=== PATIENT | male | born 1940 | race Caucasian/White ===

== ENCOUNTER 2016-11-18 12:39 | Emergency (ER) | payer MEDICARE ==
[2016-11-18] MEDS ORDERED: NS 0.9% 1000 ML* 1,000 ML IV ONE (13:27)
[2016-11-18] MEDS ORDERED: Nitroglycerin TAB 0.4 MG* 0.4 MG TAB SL PRN (13:27)
[2016-11-18] MEDS ORDERED: Aspirin Low Dose CHEW TAB* 81 MG PO ONE (13:27)
--- NOTE | 2016-11-18 13:29 | ED ---
Jeison Sow Billy, scribed for Rissa Billingsley MD on 11/18/16 at 1322 . HPI Chest Pain - HPI Summary HPI Summary: Patient is a 76 year-old male coming to [facility] with his for evaluation of chest pain. 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 He states that he has had sharp, intermittent, sternal pain for the last 10 days. He states that the pain would last several seconds and occurred every few hours. Pt went to PCP on Thursday. Pt had an EKG that was unremarkable and had a CT scan of the chest which was normal. Pt was on oral analgesia prescribed by PCP with little effect. Pt states since last evening, the character of the pain changed overnight to a pressure "like a lead weight" on his upper chest and lower back. Denies any SOB, nausea, diaphoresis. No additional analgesia taken. Pt takes 81 mg ASA daily and pletal , no other anticoagulants. He states that he has not taken any medications for erectile dysfunction in the last 3 days. All medications were reviewed this visit. - History of Current Complaint Chief Complaint: EDChestPainROMI Time Seen by Provider: 11/18/16 13:08 Hx Obtained From: Patient Onset/Duration: Started Days Ago, Worse Since - today Timing: Intermittent Initial Severity: Moderate Current Severity: Moderate Pain Intensity: 2 Pain Scale Used: 0-10 Numeric Chest Pain Location: Upper Sternal Chest Pain Radiates: Yes Chest Pain Radiates To:: Back Character: Pressure/Squeezing Associated Signs and Symptoms: Positive: Chest Pain. Negative: Shortness of Breath, Diaphoresis, Nausea - Allergy/Home Medications Allergies/Adverse Reactions: Allergies Allergy/AdvReac Type Severity Reaction Status Date / Time Repaglinide [From Prandin] Allergy Itching Verified 11/18/16 12:45 PMH/Surg Hx/FS Hx/Imm Hx Previously Healthy: No Endocrine/Hematology History: Reports: Hx Anticoagulant Therapy, Hx Diabetes - TYPE 2 Cardiovascular History: Reports: Hx Coronary Artery Disease, Hx Hypercholesterolemia, Hx Hypertension - CONTROLED WITH MEDS, Hx Peripheral Vascular Disease, Other Cardiovascular Problems/Disorders - IDDM II Respiratory History: Denies: Hx Chronic Obstructive Pulmonary Disease (COPD), Other Respiratory Problems/Disorders GI History: Reports: Hx Gall Bladder Disease, Other GI Disorders - liver transplant History: Reports: Other Problems/Disorders - RENAL TRANSPLANT R Musculoskeletal History: Denies: Hx Osteoporosis Sensory History: Reports: Hx Cataracts, Hx Hearing Aid, Hx Hearing Problem Denies: Hx Contacts or Glasses Opthamlomology History: Reports: Hx Cataracts Denies: Hx Contacts or Glasses Neurological History: Reports: Hx Nerve Disease - NEUROPATHY Denies: Other Neuro Impairments/Disorders Psychiatric History: Reports: Hx Depression - Surgical History Surgery Procedure, Year, and Place: RT HIP/FEMUR LILIAN, 06/2006. C-SPINE PLATE, 05/2000. hernias x3, 2003- 2005. kidney and liver transplant, 2006, [facility] Hx Anesthesia Reactions: No Infectious Disease History: Reports: Hx Hepatitis - HEP C Denies: Traveled Outside the [place] in Last 30 Days - Family History Known Family History: Positive: Diabetes, Other - no malignant hyperthermia, no reaction to anesthesia - Social History Lives: With Family Alcohol Use: Occasionally Substance Use Type: Reports: None Hx Tobacco Use: Yes Smoking Status (MU): Former Smoker Amount Used/How Often: 1 ppd Have You Smoked in the Last Year: No Review of Systems Constitutional: Negative Negative: Skin Diaphoresis Eyes: Negative ENT: Negative Positive: Chest Pain Respiratory: Negative Negative: Shortness Of Breath Gastrointestinal: Negative Negative: Nausea Genitourinary: Negative Musculoskeletal: Negative Skin: Negative Neurological: Negative Psychological: Normal All Other Systems Reviewed And Are Negative: Yes Physical Exam Triage Information Reviewed: Yes Vital Signs On Initial Exam: Initial Vitals Temp Pulse Resp BP Pulse Ox 97.8 F 72 18 129/62 97 11/18/16 12:42 11/18/16 12:42 11/18/16 12:42 11/18/16 12:42 11/18/16 12:42 Vital Signs Reviewed: Yes Appearance: Positive: Well-Appearing, No Pain Distress, Well-Nourished Skin: Positive: Warm, Skin Color Reflects Adequate Perfusion, Dry Eyes: Positive: Normal, EOMI, ADDIE ENT: Positive: Normal ENT inspection Neck: Positive: Supple, Nontender, No Lymphadenopathy Respiratory/Lung Sounds: Positive: Clear to Auscultation, Breath Sounds Present , Decreased Breath Sounds Cardiovascular: Positive: Normal, RRR. Negative: Murmur Abdomen Description: Positive: Nontender, No Organomegaly, Soft Bowel Sounds: Positive: Present Musculoskeletal: Positive: Normal, Strength/ROM Intact Neurological: Positive: Normal, Sensory/Motor Intact, Alert, Oriented to Person Place, Time Psychiatric: Positive: Normal AVPU Assessment: Alert - Gaduencio Coma Scale Best Eye Response: 4 - Spontaneous Best Motor Response: 6 - Obeys Commands Best Verbal Response: 5 - Oriented Diagnostics - Vital Signs Vital Signs Temp Pulse Resp BP Pulse Ox 11/18/16 12:42 97.8 F 72 18 129/62 97 - Laboratory Result Diagrams: 11/18/16 13:50 11/18/16 13:50 Lab Statement: Any lab studies that have been ordered have been reviewed, and results considered in the medical decision making process. - Radiology CXR Radiology Interpretation Completed By: Radiologist - Expiratory exam, small left basilar infiltrate. - EKG 1248 EKG Interpretation: NSR 65 bpm, minimal ST elevation in III, no reciprocal change, no STEMI Re-Evaluation - Re-Evaluation First Eval Re-Evaluation Time: 15:02 Change: Improved - Pt states pressure resolved after nitroglycerin Pt's troponin 0 I have a very long conversation with pt and regarding concern for cardiac cause of pain given description of pressure and complete resolution with nitro. I would like to keep pt in observation for serial troponin. Pt adamant will not stay in the ED - pt citing personal reasons. pt does have an appt tomorrow with PCP at 11am. Disscussed with pt AMA and reviewed potential for coronary syndrome, permanent disability and / or . Pt continued to states understanding and desire to leave. Pt encouraged to call 911 or return with any questions or concern or change in decision - pt states understanding AMA paperwork completed Chest Pain Course/Dx - Course Assessment/Plan: Pt presents with chest pressure x 24 hours. Pt with a h/o CABG 05/2017. Pt also with DM, HTN, hyperchol. Will check labs, EKG, CXR. Pt tool 81mg ASA - will give second. ntg. tele. reassess - Diagnoses Provider Diagnoses: Chest pain, Left against medical advice - Provider Notifications Discussed Care Of Patient With: Tyler Bergeron RN in dr. Padilla's office. aware of eval, pain free after ntg, pt leaving AMA. pt has appt tomorrow at 11am with PCP Discharge - Discharge Plan Condition: Good Disposition: AGAINST MEDICAL ADVICE Patient Education Materials: Chest Pain (ED), Against Medical Advice (ED) Referrals: Emmie Oconnell MD [Primary Care Provider] - Additional Instructions: - Stay well hydrated - drink plenty of non-alcoholic, non-caffinated beverages - Take your medications as previously prescribed - You must keep your appointment as schedule with your primary doctor as scheduled tomorrow - you are leaving against medical advise -this means the doctor that evaluated you wanted you to stay for additional testing. You should call 911 or return if you change your mind or you have any other questions or concerns The documentation as recorded by the Jeison smith Billy accurately reflects the service I personally performed and the decisions made by me, Rissa Billingsley MD.
[2016-11-18 13:57] LABS: Hematocrit 39 % (42-52); Hemoglobin 12.4 g/dl (14.0-18.0); Mean Corpuscular HGB Conc 32 g/dl (31-36); Mean Corpuscular Hemoglobin 25 pg (27-31); Mean Corpuscular Volume 78 fL (80-94); Mean Platelet Volume 7 um3 (7.4-10.4); Red Blood Count 4.98 10^6/ul (4.0-5.4); Red Cell Distribution Width 19 % (10.5-15); White Blood Count 7.6 10^3/ul (3.5-10.8)
--- NOTE | 2016-11-18 14:09 | RAD ---
INDICATION: Chest pain. COMPARISON: Comparison is made with prior chest x-ray studies from May 31, 2016 and August 13, 2016. TECHNIQUE: A portable view of the chest was obtained. FINDINGS: The heart is within normal limits in size. There is a dual-chamber transvenous pacemaker present. The lungs are underinflated. There is a small infiltrate at the left lung base. No pleural effusion is seen. IMPRESSION: EXPIRATORY EXAM, SMALL LEFT BASILAR INFILTRATE.
[2016-11-18 14:15] LABS: Albumin 3.5 g/dL (3.2-5.2); BUN/Creatinine Ratio 16.5 (8-20); Calcium 9.5 mg/dL (8.6-10.3); EGFR African American 104.2 (>60); Globulin 5.3 g/dL (2-4); Magnesium 1.7 mg/dL (1.9-2.7); Potassium 5.1 mmol/L (3.5-5.0); Total Bilirubin 0.5 mg/dL (0.2-1.0); Total Protein 8.8 g/dL (6.4-8.9)
[2016-11-18 15:33] VITALS: BP 122/62
== END 2016-11-18 15:38 | disposition left against medical advice (07) ==
LOC: ED 12:39
DX: R07.9 Chest pain, unspecified (principal); Z87.891 Personal history of nicotine dependence; Z53.21 Procedure and treatment not carried out due to patient leaving prior to being seen by health care provider
CPT/HCPCS: 36415; 71010; 80053; 82550; 82553; 83735; 84484; 85025; 93005; 99283; A9270-GY

== ENCOUNTER 2017-03-11 17:43 | Emergency (ER) | payer MEDICARE ==
[2017-03-11 18:03] VITALS: BP 156/67
== END 2017-03-11 19:32 | disposition left against medical advice (07) ==
LOC: ED 17:43
DX: R07.9 Chest pain, unspecified (principal); Z53.21 Procedure and treatment not carried out due to patient leaving prior to being seen by health care provider

== ENCOUNTER 2020-02-02 04:05 | Observation (INO) ==
[2020-02-02] MEDS ORDERED: Naloxone 0.4 mg VIAL 0.4 mg/ml 1 ml VIAL ONE (04:46)
[2020-02-02] MEDS ORDERED: NS 0.9% 1000 ml BAG 1,000 ML IV ONE ×3 (06:56→16:24)
[2020-02-02] MEDS ORDERED: Labetalol IV 5 MG/ML 20 ml VIAL IV PUSH ONE (06:56)
[2020-02-02] MEDS ORDERED: Iodixanol (CONTRAST) 320 MG/ML 100 ML SDV IV ONE (07:31)
[2020-02-02 08:22] LABS: ABS Eosinophils 0.1 10^3/ul (0-0.6); ABS Monocytes 0.5 10^3/ul (0-0.8); ABS Neutrophils 6.1 10^3/ul (1.5-7.7); Eosinophil % 1.5 %; Hematocrit 47 % (42-52); Hemoglobin 16.4 g/dL (14.0-18.0); Lymphocyte % 12.8 %; Mean Corpuscular HGB Conc 35 g/dL (31-36); Mean Corpuscular Hemoglobin 31 pg (27-31); Mean Corpuscular Volume 90 fL (80-94); Mean Platelet Volume 8.6 fL (7.4-10.4); Nucleated Red Blood Cells % 0.5; Platelet Count 174 10^3/uL (150-450); Red Blood Count 5.21 10^6 /uL (4.18-5.48); Red Cell Distribution Width 14 % (10-15); White Blood Count 7.8 10^3/uL (3.5-10.8)
[2020-02-02 08:23] LABS: Activated Partial Thrombo Time 29.2 seconds (26.0-38.0); INR 1.05 (0.82-1.09)
[2020-02-02 09:07] LABS: Ammonia 31 mcmol/L (16-53); Anion Gap 12 mmol/L (2-11); BNP 142 pg/mL (<=100); CO2 Carbon Dioxide 23 mmol/L (22-32); Chloride 101 mmol/L (101-111); Potassium 4.3 mmol/L (3.5-5.0); Sodium 136 mmol/L (135-145)
[2020-02-02 09:08] LABS: ALT 13 U/L (7-52); AST 15 U/L (13-39); Albumin 4.5 g/dL (3.2-5.2); Albumin/Globulin Ratio 1.3 (1-3); Alkaline Phosphatase 82 U/L (34-104); BUN/Creatinine Ratio 10.8 (8-20); Blood Urea Nitrogen 10 mg/dL (6-24); Calcium 9.5 mg/dL (8.6-10.3); EGFR African American 94.8 (>60); EGFR Non-African American 78.4 (>60); Globulin 3.5 g/dL (2-4); Glucose 199 mg/dL (70-100)
[2020-02-02 09:18] LABS: Urine Benzodiazepine Screen None Detected (None Detect); Urine Cannabinoids Screen None Detected (None Detect); Urine Opiates Screen None Detected (None Detect)
[2020-02-02 09:29] LABS: Urine Appearance Clear; Urine Bacteria Absent (Absent); Urine Bilirubin Negative (Negative); Urine Blood 2+ (Negative); Urine Color Straw; Urine Glucose 2+(150 mg/dL) (Negative); Urine Ketones 1+ (Negative); Urine Nitrite Negative (Negative); Urine Protein Negative (Negative); Urine Red Blood Cell 1+(3-5/hpf) (Absent); Urine Specific Gravity 1.019 (1.010-1.030); Urine Urobilinogen Negative (Negative); Urine White Blood Cell Absent (Absent)
[2020-02-02 10:18] LABS: ABS Basophils 0.1 10^3/ul (0-0.2); ABS Eosinophils 0.1 10^3/ul (0-0.6); ABS Lymphocytes 1.1 10^3/ul (1.0-4.8); ABS Monocytes 0.7 10^3/ul (0-0.8); ABS Neutrophils 6.1 10^3/ul (1.5-7.7); Eosinophil % 1.1 %; Hematocrit 48 % (42-52); Hemoglobin 16.8 g/dL (14.0-18.0); Lymphocyte % 14.3 %; Mean Corpuscular HGB Conc 35 g/dL (31-36); Mean Corpuscular Hemoglobin 32 pg (27-31); Mean Corpuscular Volume 90 fL (80-94); Mean Platelet Volume 8.1 fL (7.4-10.4); Nucleated Red Blood Cells % 0.1; Platelet Count 172 10^3/uL (150-450); Red Blood Count 5.35 10^6 /uL (4.18-5.48); Red Cell Distribution Width 14 % (10-15)
[2020-02-02 10:29] LABS: ALT 13 U/L (7-52); AST 15 U/L (13-39); Albumin 4.4 g/dL (3.2-5.2); Albumin/Globulin Ratio 1.3 (1-3); Alkaline Phosphatase 83 U/L (34-104); Anion Gap 15 mmol/L (2-11); BUN/Creatinine Ratio 8.8 (8-20); Blood Urea Nitrogen 8 mg/dL (6-24); CO2 Carbon Dioxide 20 mmol/L (22-32); Chloride 101 mmol/L (101-111); EGFR African American 97.2 (>60); EGFR Non-African American 80.4 (>60); Globulin 3.5 g/dL (2-4); Glucose 251 mg/dL (70-100); Indirect Bilirubin 1.1 mg/dL (0.3-1.0); Magnesium 1.5 mg/dL (1.9-2.7); Potassium 3.7 mmol/L (3.5-5.0); Sodium 136 mmol/L (135-145); Total Protein 7.9 g/dL (6.4-8.9)
[2020-02-02] MEDS ORDERED: Magnesium Sulfate 2 gm BAG 2 GM/50 ML BAG IVPB ONE ×2 (10:38→11:52)
[2020-02-02 10:44] LABS: Acetaminophen < 15 mcg/mL; Alcohol, S < 10 mg/dL (<10); Salicylate < 2.50 mg/dL (<30)
[2020-02-02 11:52] LABS: Acetaminophen < 15 mcg/mL
[2020-02-02 16:41] LABS: C Reactive Protein 3.73 mg/L (<8.01)
[2020-02-02] MEDS: NS 0.9% 1000 ml BAG 1,000 ML IV SCH (18:33)
[2020-02-02] MEDS: hydrALAZINE 20 mg/ml 1 ML Vial IV IV SLOW PU PRN (21:38)
[2020-02-03] MEDS: hydrALAZINE 20 mg/ml 1 ML Vial IV IV SLOW PU PRN (03:44)
[2020-02-03] MEDS ORDERED: Dextrose 50% Syringe 50 ml 25 GM/50 ML SYRINGE IV PUSH PRN (06:50)
[2020-02-03 07:02] LABS: ABS Basophils 0.1 10^3/ul (0-0.2); ABS Eosinophils 0.3 10^3/ul (0-0.6); ABS Lymphocytes 1.6 10^3/ul (1.0-4.8); ABS Monocytes 0.7 10^3/ul (0-0.8); ABS Neutrophils 4.1 10^3/ul (1.5-7.7); Eosinophil % 4.8 %; Hematocrit 46 % (42-52); Hemoglobin 16.1 g/dL (14.0-18.0); Lymphocyte % 23.4 %; Mean Corpuscular HGB Conc 35 g/dL (31-36); Mean Corpuscular Hemoglobin 31 pg (27-31); Mean Corpuscular Volume 89 fL (80-94); Nucleated Red Blood Cells % 0.1; Platelet Count 181 10^3/uL (150-450); Red Blood Count 5.14 10^6 /uL (4.18-5.48); Red Cell Distribution Width 15 % (10-15); White Blood Count 6.7 10^3/uL (3.5-10.8)
[2020-02-03 07:17] LABS: BUN/Creatinine Ratio 8.9 (8-20); Calcium 8.7 mg/dL (8.6-10.3); EGFR African American 114.5 (>60); EGFR Non-African American 94.6 (>60)
[2020-02-03 07:55] LABS: Potassium 3.8 mmol/L (3.5-5.0)
[2020-02-03] MEDS ORDERED: Aspirin EC 81 mg TAB.EC (enteric coated) PO SCH (09:00)
[2020-02-03] MEDS: NS 0.9% 1000 ml BAG 1,000 ML IV SCH (09:42)
[2020-02-03 17:04] VITALS: BP 145/71
== END 2020-02-03 16:30 | disposition home or self-care (01) ==
LOC: MED 06:51 → ED 06:51 → MED 17:39
PROVIDERS: ADMIT Internal Medicine; ATTEND Internal Medicine

== ENCOUNTER 2020-10-25 17:16 | Inpatient (IN) ==
[2020-10-25 17:46] LABS: ABS Lymphocytes 0.3 10^3/ul (1.0-4.8); ABS Monocytes 0.6 10^3/ul (0-0.8); ABS Neutrophils 11.8 10^3/ul (1.5-7.7); Hematocrit 43 % (42-52); Hemoglobin 14.6 g/dL (14.0-18.0); Lymphocyte % 2.3 %; Mean Corpuscular HGB Conc 34 g/dL (31-36); Mean Corpuscular Hemoglobin 31 pg (27-31); Mean Corpuscular Volume 90 fL (80-94); Mean Platelet Volume 7.5 fL (7.4-10.4); Platelet Count 186 10^3/uL (150-450); Red Blood Count 4.73 10^6 /uL (4.18-5.48); Red Cell Distribution Width 15 % (10-15); White Blood Count 12.6 10^3/uL (3.5-10.8)
[2020-10-25] MEDS ORDERED: NS 0.9% 1000 ml BAG 1,000 ML IV ONE (17:54)
[2020-10-25 17:57] LABS: ALT 11 U/L (7-52); AST 18 U/L (13-39); Albumin 4.3 g/dL (3.2-5.2); Albumin/Globulin Ratio 1.3 (1-3); Alkaline Phosphatase 82 U/L (34-104); Anion Gap 13 mmol/L (2-11); Blood Urea Nitrogen 22 mg/dL (6-24); CO2 Carbon Dioxide 21 mmol/L (22-32); Calcium 9.1 mg/dL (8.6-10.3); Chloride 103 mmol/L (101-111); Creatine Kinase 77 U/L (10-223); EGFR African American 47.5 (>60); EGFR Non-African American 39.2 (>60); Globulin 3.4 g/dL (2-4); Glucose 114 mg/dL (70-100); Magnesium 1.6 mg/dL (1.9-2.7); Potassium 3.5 mmol/L (3.5-5.0); Sodium 137 mmol/L (135-145); Total Protein 7.7 g/dL (6.4-8.9)
[2020-10-25 18:10] LABS: Troponin I 0.04 ng/mL (<0.03)
[2020-10-25 18:25] LABS: TSH Ultra Thyroid Stim Horm 2.75 mcIU/mL (0.34-5.60)
[2020-10-25] MEDS ORDERED: Magnesium Sulfate 2 gm BAG 2 GM/50 ML BAG IVPB ONE (18:53)
[2020-10-25] MEDS ORDERED: Dextrose 50% Syringe 50 ml 25 GM/50 ML SYRINGE IV PUSH ONE (19:33)
[2020-10-25] MEDS ORDERED: Dextrose 50% Syringe 50 ml 25 GM/50 ML SYRINGE ONE (19:34)
[2020-10-25] MEDS ORDERED: Ondansetron 4 mg VIAL 2 MG/ML 2 ml VIAL IV ONE (20:15)
[2020-10-25] MEDS ORDERED: Sodium Chloride CONC. 4 MEQ/ML 38.5 MEQ in D10W 1000 ml BAG 1,000 ML IV SCH (21:00)
[2020-10-25] MEDS ORDERED: D10W 1000 ML BAG 1000 ML IV SCH (21:00)
[2020-10-25] MEDS: Dextrose 50% Syringe 50 ml 25 GM/50 ML SYRINGE IV PUSH PRN ×2 (21:10→22:12)
[2020-10-25] MEDS ORDERED: Heparin DRIP 25,000 UNITS BAG 25,000 UNITS/500 ML BAG IV SCH (21:45)
[2020-10-25] MEDS ORDERED: Sodium Chloride CONC. 4 MEQ/ML 77 MEQ in D10W 1000 ml BAG 1,000 ML IV SCH (22:00)
[2020-10-25] MEDS ORDERED: D10W 1000 ml BAG 1,000 ML IV SCH (22:00)
[2020-10-25] MEDS ORDERED: Enoxaparin 30 MG/0.3 ML SYR SUBCUT SCH (22:00)
[2020-10-25] MEDS ORDERED: Heparin 5000 UNITS/ML 1 mL VIAL IV SCH (22:00)
[2020-10-25] MEDS ORDERED: Dextrose 50% Syringe 50 ml 25 GM/50 ML SYRINGE IV PUSH PRN (22:09)
[2020-10-25 22:43] LABS: ABS Basophils 0.1 10^3/ul (0-0.2); ABS Lymphocytes 0.7 10^3/ul (1.0-4.8); ABS Monocytes 1.1 10^3/ul (0-0.8); Eosinophil % 0.1 %; Hematocrit 40 % (42-52); Hemoglobin 13.5 g/dL (14.0-18.0); Lymphocyte % 5.4 %; Mean Corpuscular HGB Conc 34 g/dL (31-36); Mean Corpuscular Hemoglobin 31 pg (27-31); Mean Corpuscular Volume 90 fL (80-94); Mean Platelet Volume 7.5 fL (7.4-10.4); Platelet Count 196 10^3/uL (150-450); Red Blood Count 4.43 10^6 /uL (4.18-5.48); Red Cell Distribution Width 15 % (10-15); White Blood Count 12.9 10^3/uL (3.5-10.8)
[2020-10-25 22:59] LABS: EGFR African American 46.2 (>60); EGFR Non-African American 38.2 (>60)
[2020-10-26 05:14] LABS: ABS Lymphocytes 1.1 10^3/ul (1.0-4.8); ABS Monocytes 1.3 10^3/ul (0-0.8); ABS Neutrophils 12.3 10^3/ul (1.5-7.7); Eosinophil % 0.1 %; Hematocrit 39 % (42-52); Hemoglobin 13.3 g/dL (14.0-18.0); Lymphocyte % 7.7 %; Mean Corpuscular HGB Conc 34 g/dL (31-36); Mean Corpuscular Hemoglobin 31 pg (27-31); Mean Corpuscular Volume 91 fL (80-94); Mean Platelet Volume 8.2 fL (7.4-10.4); Platelet Count 179 10^3/uL (150-450); Red Blood Count 4.33 10^6 /uL (4.18-5.48); Red Cell Distribution Width 15 % (10-15); White Blood Count 14.7 10^3/uL (3.5-10.8)
[2020-10-26 05:33] LABS: BUN/Creatinine Ratio 13.9 (8-20); Calcium 8.4 mg/dL (8.6-10.3); EGFR African American 42.2 (>60); EGFR Non-African American 34.9 (>60); Magnesium 2.1 mg/dL (1.9-2.7)
[2020-10-26 05:42] LABS: Potassium 5.7 mmol/L (3.5-5.0)
[2020-10-26] MEDS ORDERED: NS 0.9% 1000 ml BAG 1,000 ML IV SCH (07:00)
[2020-10-26] MEDS ORDERED: D10W 1000 ml BAG 1,000 ML IV SCH ×2 (07:00→07:42)
[2020-10-26] MEDS: Aspirin EC 81 mg TAB.EC (enteric coated) PO SCH (07:29)
[2020-10-26] MEDS ORDERED: Furosemide 40 mg/4 ml IV VIAL IV SLOW PU ONE (07:32)
[2020-10-26] MEDS ORDERED: Furosemide 40 mg/4 ml IV VIAL ONE (07:41)
[2020-10-26] MEDS ORDERED: Albuterol/Ipratropium NEB.SOL (2.5/0.5 MG) 3 ML NEB.SOLN INH SCH (12:00)
[2020-10-26] MEDS: DULoxetine DR 20 mg CAP PO SCH (13:08)
[2020-10-26] MEDS: Polyethylene Glycol 3350 17 GM PACKET PO PRN (13:30)
[2020-10-26 18:16] LABS: BUN/Creatinine Ratio 17.4 (8-20); Blood Urea Nitrogen 21 mg/dL (6-24); CO2 Carbon Dioxide 18 mmol/L (22-32); Calcium 6.8 mg/dL (8.6-10.3); Chloride 109 mmol/L (101-111); EGFR African American 69.8 (>60); EGFR Non-African American 57.7 (>60); Glucose 94 mg/dL (70-100); Sodium 135 mmol/L (135-145)
[2020-10-26 18:17] LABS: Anion Gap 8 mmol/L (2-11)
[2020-10-26] MEDS: Senna TAB 8.6 mg TAB PO PRN (21:09)
[2020-10-26] MEDS: Albuterol/Ipratropium NEB.SOL (2.5/0.5 MG) 3 ML NEB.SOLN INH PRN (22:08)
[2020-10-27] MEDS: Albuterol/Ipratropium NEB.SOL (2.5/0.5 MG) 3 ML NEB.SOLN INH PRN ×3 (06:09→17:31)
[2020-10-27 07:44] LABS: ABS Basophils 0.1 10^3/ul (0-0.2); ABS Eosinophils 0.2 10^3/ul (0-0.6); ABS Lymphocytes 1.4 10^3/ul (1.0-4.8); ABS Monocytes 0.9 10^3/ul (0-0.8); Eosinophil % 1.9 %; Hematocrit 40 % (42-52); Hemoglobin 13.4 g/dL (14.0-18.0); Lymphocyte % 12.3 %; Mean Corpuscular HGB Conc 34 g/dL (31-36); Mean Corpuscular Hemoglobin 31 pg (27-31); Mean Corpuscular Volume 90 fL (80-94); Mean Platelet Volume 8.2 fL (7.4-10.4); Platelet Count 173 10^3/uL (150-450); Red Blood Count 4.38 10^6 /uL (4.18-5.48); Red Cell Distribution Width 15 % (10-15); White Blood Count 11.6 10^3/uL (3.5-10.8)
[2020-10-27 07:56] LABS: BUN/Creatinine Ratio 19.2 (8-20); Calcium 8.8 mg/dL (8.6-10.3); EGFR African American 70.5 (>60); EGFR Non-African American 58.3 (>60); Potassium 4.8 mmol/L (3.5-5.0)
[2020-10-27] MEDS: Polyethylene Glycol 3350 17 GM PACKET PO PRN (08:42)
[2020-10-27] MEDS: DULoxetine DR 20 mg CAP PO SCH (08:45)
[2020-10-27] MEDS: Aspirin EC 81 mg TAB.EC (enteric coated) PO SCH (08:45)
[2020-10-27] MEDS ORDERED: Furosemide 20 mg/2 ml IV VIAL IV ONE (12:14)
[2020-10-27] MEDS ORDERED: Furosemide 20 mg/2 ml IV VIAL ONE (12:16)
[2020-10-27] MEDS ORDERED: Mineral Oil ENEMA 118 ML/BOTTLE BOTTLE PR ONE (13:24)
[2020-10-27 17:17] LABS: Tacrolimus 2.2 ng/mL
[2020-10-27] MEDS: Magnesium Hydroxide LIQ 30 ML UDC PO SCH (21:28)
[2020-10-27] MEDS: Senna TAB 8.6 mg TAB PO PRN (21:39)
[2020-10-27] MEDS ORDERED: Dextrose 50% Syringe 50 ml 25 GM/50 ML SYRINGE IV PUSH PRN (21:46)
[2020-10-28 04:40] LABS: ABS Eosinophils 0.2 10^3/ul (0-0.6); ABS Lymphocytes 1.2 10^3/ul (1.0-4.8); ABS Neutrophils 7.2 10^3/ul (1.5-7.7); Eosinophil % 1.8 %; Hematocrit 39 % (42-52); Hemoglobin 13.2 g/dL (14.0-18.0); Mean Corpuscular HGB Conc 34 g/dL (31-36); Mean Corpuscular Hemoglobin 31 pg (27-31); Mean Corpuscular Volume 90 fL (80-94); Mean Platelet Volume 8.1 fL (7.4-10.4); Platelet Count 178 10^3/uL (150-450); Red Cell Distribution Width 15 % (10-15); White Blood Count 9.6 10^3/uL (3.5-10.8)
[2020-10-28 04:51] LABS: EGFR Non-African American 71.9 (>60); Potassium 4.3 mmol/L (3.5-5.0)
[2020-10-28] MEDS: Senna TAB 8.6 mg TAB PO PRN (05:40)
[2020-10-28] MEDS: Magnesium Hydroxide LIQ 30 ML UDC PO SCH ×2 (08:14→20:13)
[2020-10-28] MEDS: Aspirin EC 81 mg TAB.EC (enteric coated) PO SCH (08:15)
[2020-10-28] MEDS: DULoxetine DR 20 mg CAP PO SCH (08:15)
[2020-10-28 10:43] LABS: Albumin 3.7 g/dL (3.2-5.2); Albumin/Globulin Ratio 1.2 (1-3); Globulin 3.2 g/dL (2-4); Indirect Bilirubin 0.9 mg/dL (0.3-1.0); Total Bilirubin 1.1 mg/dL (0.2-1.0); Total Protein 6.9 g/dL (6.4-8.9)
[2020-10-28] MEDS: methylPREDNISolone SOD 40 mg/ml 1 ml VIAL IV SCH ×2 (14:00→23:34)
[2020-10-29 05:30] LABS: ABS Lymphocytes 0.4 10^3/ul (1.0-4.8); ABS Monocytes 0.1 10^3/ul (0-0.8); ABS Neutrophils 5.9 10^3/ul (1.5-7.7); Eosinophil % 0.1 %; Hematocrit 38 % (42-52); Hemoglobin 13.1 g/dL (14.0-18.0); Lymphocyte % 6.7 %; Mean Corpuscular HGB Conc 34 g/dL (31-36); Mean Corpuscular Hemoglobin 31 pg (27-31); Mean Corpuscular Volume 90 fL (80-94); Mean Platelet Volume 8.1 fL (7.4-10.4); Platelet Count 194 10^3/uL (150-450); Red Blood Count 4.22 10^6 /uL (4.18-5.48); Red Cell Distribution Width 15 % (10-15); White Blood Count 6.5 10^3/uL (3.5-10.8)
[2020-10-29 05:40] LABS: BUN/Creatinine Ratio 27.9 (8-20); Calcium 9.1 mg/dL (8.6-10.3); EGFR African American 77.1 (>60); EGFR Non-African American 63.7 (>60); Magnesium 2.5 mg/dL (1.9-2.7); Potassium 4.9 mmol/L (3.5-5.0)
[2020-10-29] MEDS ORDERED: Insulin GLARGINE 100 un/ml 10 ml VIAL SUBCUT SCH (09:00)
[2020-10-29] MEDS: Aspirin EC 81 mg TAB.EC (enteric coated) PO SCH (09:49)
[2020-10-29] MEDS: DULoxetine DR 20 mg CAP PO SCH (09:51)
[2020-10-29] MEDS: Magnesium Hydroxide LIQ 30 ML UDC PO SCH ×2 (09:54→20:29)
[2020-10-29] MEDS ORDERED: Iodixanol (CONTRAST) 320 MG/ML 100 ML SDV IV ONE (14:38)
[2020-10-29] MEDS ORDERED: Insulin GLARGINE 100 un/ml 10 ml VIAL SUBCUT ONE (16:58)
[2020-10-29] MEDS: Polyethylene Glycol 3350 17 GM PACKET PO PRN (17:32)
[2020-10-29] MEDS: Senna TAB 8.6 mg TAB PO PRN (17:32)
[2020-10-30 05:55] LABS: ABS Eosinophils 0.1 10^3/ul (0-0.6); ABS Lymphocytes 1.5 10^3/ul (1.0-4.8); ABS Monocytes 0.7 10^3/ul (0-0.8); ABS Neutrophils 4.1 10^3/ul (1.5-7.7); Eosinophil % 2.1 %; Hematocrit 39 % (42-52); Hemoglobin 13.3 g/dL (14.0-18.0); Lymphocyte % 22.9 %; Mean Corpuscular HGB Conc 34 g/dL (31-36); Mean Corpuscular Hemoglobin 31 pg (27-31); Mean Corpuscular Volume 90 fL (80-94); Platelet Count 228 10^3/uL (150-450); Red Blood Count 4.34 10^6 /uL (4.18-5.48); Red Cell Distribution Width 15 % (10-15); White Blood Count 6.4 10^3/uL (3.5-10.8)
[2020-10-30 06:13] LABS: Potassium 4.1 mmol/L (3.5-5.0)
[2020-10-30 06:14] LABS: BUN/Creatinine Ratio 27.2 (8-20); Calcium 8.9 mg/dL (8.6-10.3); EGFR African American 84.1 (>60); EGFR Non-African American 69.5 (>60); Magnesium 2.3 mg/dL (1.9-2.7)
[2020-10-30] MEDS: Aspirin EC 81 mg TAB.EC (enteric coated) PO SCH (08:35)
[2020-10-30] MEDS: Magnesium Hydroxide LIQ 30 ML UDC PO SCH ×2 (08:37→22:05)
[2020-10-30] MEDS: Insulin GLARGINE 100 un/ml 10 ml VIAL SUBCUT SCH (08:41)
[2020-10-30] MEDS ORDERED: DULoxetine DR 30 mg CAP PO SCH (09:00)
[2020-10-31] MEDS ORDERED: SPIRIVA Respimat (tiotropium) 2.5 mcg/inh Inhaler INH SCH (09:00)
[2020-10-31] MEDS: Insulin GLARGINE 100 un/ml 10 ml VIAL SUBCUT SCH (09:03)
[2020-10-31] MEDS: Aspirin EC 81 mg TAB.EC (enteric coated) PO SCH (09:05)
[2020-10-31] MEDS: Magnesium Hydroxide LIQ 30 ML UDC PO SCH (09:06)
[2020-10-31 11:19] VITALS: BP 154/69
[2020-10-31] MEDS ORDERED: DULoxetine DR 30 mg CAP PO SCH (21:00)
== END 2020-10-31 13:30 | disposition home or self-care (01) ==
LOC: ED 17:16 → ICU 21:21 → OBSVTOIN 21:21 → INTOOBSV 21:21 → ICU 22:50 → MEDTELE 10-28 19:29
PROVIDERS: ADMIT Internal Medicine; ATTEND Internal Medicine

== ENCOUNTER 2020-11-26 09:33 | Inpatient (IN) ==
[2020-11-26 10:46] LABS: ABS Basophils 0.1 10^3/ul (0-0.2); ABS Eosinophils 0.3 10^3/ul (0-0.6); ABS Lymphocytes 0.9 10^3/ul (1.0-4.8); ABS Monocytes 0.6 10^3/ul (0-0.8); ABS Neutrophils 5.3 10^3/ul (1.5-7.7); Eosinophil % 4.2 %; Hematocrit 39 % (42-52); Hemoglobin 13.3 g/dL (14.0-18.0); Lymphocyte % 12.5 %; Mean Corpuscular HGB Conc 34 g/dL (31-36); Mean Corpuscular Hemoglobin 30 pg (27-31); Mean Corpuscular Volume 90 fL (80-94); Mean Platelet Volume 8.4 fL (7.4-10.4); Platelet Count 165 10^3/uL (150-450); Red Blood Count 4.36 10^6 /uL (4.18-5.48); Red Cell Distribution Width 15 % (10-15); White Blood Count 7.2 10^3/uL (3.5-10.8)
[2020-11-26 11:16] LABS: Albumin 4.1 g/dL (3.2-5.2); Albumin/Globulin Ratio 1.4 (1-3); Calcium 9.1 mg/dL (8.6-10.3); EGFR African American 68.5 (>60); EGFR Non-African American 56.6 (>60); Potassium 4.3 mmol/L (3.5-5.0); Total Bilirubin 1.1 mg/dL (0.2-1.0); Total Protein 7.1 g/dL (6.4-8.9)
[2020-11-26] MEDS ORDERED: Dextrose 50% Syringe 50 ml 25 GM/50 ML SYRINGE IV PUSH PRN (14:06)
[2020-11-26] MEDS ORDERED: Senna TAB 8.6 mg TAB PO ONE (14:54)
[2020-11-26] MEDS ORDERED: Furosemide 40 mg/4 ml IV VIAL IV SLOW PU ONE (14:55)
[2020-11-26] MEDS ORDERED: DULoxetine DR 30 mg CAP PO SCH (15:00)
[2020-11-26] MEDS ORDERED: Albuterol HFA INHALER 8 gm MDI INH PRN (15:24)
[2020-11-26 18:33] LABS: Magnesium 1.6 mg/dL (1.9-2.7)
[2020-11-26] MEDS ORDERED: Magnesium Sulfate IV 3 GM in NS 0.9% 100 ml BAG 100 ML IVPB ONE (19:48)
[2020-11-26] MEDS ORDERED: Cefpodoxime 200 mg (NF) PO SCH (21:00)
[2020-11-26] MEDS ORDERED: PREGABALIN 75 MG PO SCH (21:00)
[2020-11-26] MEDS: Insulin GLARGINE 100 un/ml 10 ml VIAL SUBCUT SCH (21:46)
[2020-11-26] MEDS: Heparin 5000 UNITS/ML 1 mL VIAL SUBCUT SCH (21:49)
[2020-11-27] MEDS: Albuterol HFA INHALER 8 gm MDI INH PRN ×2 (02:29→12:45)
[2020-11-27] MEDS: Heparin 5000 UNITS/ML 1 mL VIAL SUBCUT SCH ×3 (07:08→21:19)
[2020-11-27] MEDS: Aspirin EC 81 mg TAB.EC (enteric coated) PO SCH (09:39)
[2020-11-27] MEDS ORDERED: Furosemide 40 mg/4 ml IV VIAL IV SLOW PU ONE (14:07)
[2020-11-27 14:59] LABS: ABS Eosinophils 0.3 10^3/ul (0-0.6); ABS Lymphocytes 1.3 10^3/ul (1.0-4.8); ABS Monocytes 0.7 10^3/ul (0-0.8); ABS Neutrophils 4.2 10^3/ul (1.5-7.7); Eosinophil % 3.9 %; Hematocrit 37 % (42-52); Hemoglobin 12.8 g/dL (14.0-18.0); Lymphocyte % 19.5 %; Mean Corpuscular HGB Conc 34 g/dL (31-36); Mean Corpuscular Hemoglobin 31 pg (27-31); Mean Corpuscular Volume 90 fL (80-94); Mean Platelet Volume 8.3 fL (7.4-10.4); Platelet Count 145 10^3/uL (150-450); Red Blood Count 4.14 10^6 /uL (4.18-5.48); Red Cell Distribution Width 15 % (10-15); White Blood Count 6.5 10^3/uL (3.5-10.8)
[2020-11-27 15:46] LABS: Calcium 8.8 mg/dL (8.6-10.3); EGFR African American 63.7 (>60); EGFR Non-African American 52.6 (>60); Magnesium 2.3 mg/dL (1.9-2.7); Potassium 3.7 mmol/L (3.5-5.0)
[2020-11-27] MEDS: Insulin GLARGINE 100 un/ml 10 ml VIAL SUBCUT SCH (21:19)
[2020-11-28] MEDS: Heparin 5000 UNITS/ML 1 mL VIAL SUBCUT SCH ×3 (06:07→20:52)
[2020-11-28] MEDS: Aspirin EC 81 mg TAB.EC (enteric coated) PO SCH (07:31)
[2020-11-28] MEDS ORDERED: Magnesium Sulfate IV 1GM/100ML 1 GM/100 ML BAG IV ONE (07:46)
[2020-11-28 08:55] LABS: ABS Eosinophils 0.3 10^3/ul (0-0.6); ABS Monocytes 0.6 10^3/ul (0-0.8); ABS Neutrophils 3.4 10^3/ul (1.5-7.7); Eosinophil % 4.9 %; Hematocrit 37 % (42-52); Hemoglobin 12.3 g/dL (14.0-18.0); Lymphocyte % 19.7 %; Mean Corpuscular HGB Conc 34 g/dL (31-36); Mean Corpuscular Hemoglobin 30 pg (27-31); Mean Corpuscular Volume 91 fL (80-94); Mean Platelet Volume 8.1 fL (7.4-10.4); Platelet Count 138 10^3/uL (150-450); Red Blood Count 4.05 10^6 /uL (4.18-5.48); Red Cell Distribution Width 15 % (10-15); White Blood Count 5.3 10^3/uL (3.5-10.8)
[2020-11-28 09:13] LABS: EGFR African American 56.2 (>60); EGFR Non-African American 46.5 (>60); Magnesium 2.1 mg/dL (1.9-2.7); Potassium 4.3 mmol/L (3.5-5.0)
[2020-11-28] MEDS ORDERED: Furosemide 100 mg/10 ml IV VIAL IV ONE (17:00)
[2020-11-28] MEDS: Insulin GLARGINE 100 un/ml 10 ml VIAL SUBCUT SCH (20:51)
[2020-11-29] MEDS: Heparin 5000 UNITS/ML 1 mL VIAL SUBCUT SCH ×3 (05:29→21:05)
[2020-11-29 06:30] LABS: ABS Eosinophils 0.2 10^3/ul (0-0.6); ABS Lymphocytes 0.9 10^3/ul (1.0-4.8); ABS Monocytes 0.5 10^3/ul (0-0.8); ABS Neutrophils 3.5 10^3/ul (1.5-7.7); Eosinophil % 4.1 %; Hematocrit 34 % (42-52); Lymphocyte % 17.6 %; Mean Corpuscular HGB Conc 35 g/dL (31-36); Mean Corpuscular Hemoglobin 31 pg (27-31); Mean Corpuscular Volume 89 fL (80-94); Mean Platelet Volume 8.6 fL (7.4-10.4); Platelet Count 135 10^3/uL (150-450); Red Blood Count 3.87 10^6 /uL (4.18-5.48); Red Cell Distribution Width 15 % (10-15); White Blood Count 5.1 10^3/uL (3.5-10.8)
[2020-11-29 06:45] LABS: Calcium 8.8 mg/dL (8.6-10.3); EGFR African American 52.1 (>60); Potassium 4.2 mmol/L (3.5-5.0)
[2020-11-29] MEDS: Aspirin EC 81 mg TAB.EC (enteric coated) PO SCH (07:55)
[2020-11-29] MEDS: Albuterol HFA INHALER 8 gm MDI INH PRN (08:23)
[2020-11-29] MEDS ORDERED: NS 0.9% IV ONE (11:00)
[2020-11-29] MEDS ORDERED: Dulaglutide (NF) 0.75 MG/0.5 ML SYRINGE SUBCUT SCH (11:00)
[2020-11-29] MEDS ORDERED: FUROSEMIDE IV ONE (11:00)
[2020-11-29] MEDS ORDERED: Insulin GLARGINE 100 un/ml 10 ml VIAL SUBCUT SCH (21:00)
[2020-11-29 21:01] LABS: Urine Appearance Clear; Urine Bilirubin Negative (Negative); Urine Blood Negative (Negative); Urine Color Yellow; Urine Glucose Negative (Negative); Urine Ketones Negative (Negative); Urine Nitrite Negative (Negative); Urine Protein Negative (Negative); Urine Specific Gravity 1.016 (1.002-1.030); Urine Urobilinogen Negative (Negative)
[2020-11-30] MEDS: Heparin 5000 UNITS/ML 1 mL VIAL SUBCUT SCH ×3 (05:33→20:51)
[2020-11-30 07:48] LABS: ABS Eosinophils 0.3 10^3/ul (0-0.6); ABS Lymphocytes 1.1 10^3/ul (1.0-4.8); ABS Monocytes 0.6 10^3/ul (0-0.8); ABS Neutrophils 3.4 10^3/ul (1.5-7.7); Eosinophil % 5.2 %; Hematocrit 36 % (42-52); Hemoglobin 12.4 g/dL (14.0-18.0); Mean Corpuscular HGB Conc 34 g/dL (31-36); Mean Corpuscular Hemoglobin 31 pg (27-31); Mean Corpuscular Volume 90 fL (80-94); Mean Platelet Volume 8.4 fL (7.4-10.4); Nucleated Red Blood Cells % 0.1; Platelet Count 153 10^3/uL (150-450); Red Blood Count 4.04 10^6 /uL (4.18-5.48); Red Cell Distribution Width 15 % (10-15); White Blood Count 5.4 10^3/uL (3.5-10.8)
[2020-11-30] MEDS: Aspirin EC 81 mg TAB.EC (enteric coated) PO SCH (07:51)
[2020-11-30 08:07] LABS: Albumin 4.1 g/dL (3.2-5.2); Albumin/Globulin Ratio 1.3 (1-3); Calcium 9.2 mg/dL (8.6-10.3); EGFR African American 56.7 (>60); EGFR Non-African American 46.8 (>60); Globulin 3.1 g/dL (2-4); Potassium 4.3 mmol/L (3.5-5.0); Total Bilirubin 0.7 mg/dL (0.2-1.0); Total Protein 7.2 g/dL (6.4-8.9)
[2020-11-30] MEDS: Albuterol HFA INHALER 8 gm MDI INH PRN (13:20)
[2020-11-30] MEDS ORDERED: NS 0.9% IV ONE (15:00)
[2020-11-30] MEDS ORDERED: FUROSEMIDE IV ONE (15:00)
[2020-11-30] MEDS: Insulin GLARGINE 100 un/ml 10 ml VIAL SUBCUT SCH (20:51)
[2020-12-01] MEDS: Heparin 5000 UNITS/ML 1 mL VIAL SUBCUT SCH ×3 (05:40→21:28)
[2020-12-01 06:48] LABS: ABS Eosinophils 0.2 10^3/ul (0-0.6); ABS Lymphocytes 0.9 10^3/ul (1.0-4.8); ABS Monocytes 0.5 10^3/ul (0-0.8); ABS Neutrophils 2.5 10^3/ul (1.5-7.7); Hematocrit 35 % (42-52); Hemoglobin 11.7 g/dL (14.0-18.0); Mean Corpuscular HGB Conc 34 g/dL (31-36); Mean Corpuscular Hemoglobin 30 pg (27-31); Mean Corpuscular Volume 90 fL (80-94); Mean Platelet Volume 7.9 fL (7.4-10.4); Nucleated Red Blood Cells % 0.1; Platelet Count 149 10^3/uL (150-450); Red Blood Count 3.87 10^6 /uL (4.18-5.48); Red Cell Distribution Width 15 % (10-15); White Blood Count 4.1 10^3/uL (3.5-10.8)
[2020-12-01 07:05] LABS: Calcium 8.8 mg/dL (8.6-10.3); EGFR African American 66.6 (>60); EGFR Non-African American 55.1 (>60)
[2020-12-01] MEDS: Aspirin EC 81 mg TAB.EC (enteric coated) PO SCH (08:31)
[2020-12-01 13:36] LABS: Tacrolimus 1.9 ng/mL
[2020-12-01] MEDS: Albuterol HFA INHALER 8 gm MDI INH PRN (21:22)
[2020-12-01] MEDS: Insulin GLARGINE 100 un/ml 10 ml VIAL SUBCUT SCH (21:26)
[2020-12-01] MEDS: Albuterol/Ipratropium NEB.SOL (2.5/0.5 MG) 3 ML NEB.SOLN INH PRN (22:08)
[2020-12-02] MEDS: Heparin 5000 UNITS/ML 1 mL VIAL SUBCUT SCH ×3 (05:56→21:18)
[2020-12-02] MEDS: Aspirin EC 81 mg TAB.EC (enteric coated) PO SCH (07:57)
[2020-12-02 11:16] LABS: Calcium 8.6 mg/dL (8.6-10.3); EGFR African American 80.5 (>60); EGFR Non-African American 66.5 (>60); Magnesium 1.5 mg/dL (1.9-2.7); Potassium 3.3 mmol/L (3.5-5.0)
[2020-12-02 13:22] LABS: C Reactive Protein 7.47 mg/L (<8.01)
[2020-12-02] MEDS ORDERED: Potassium Chlor 20 meq TAB.ER PO ONE (17:10)
[2020-12-02] MEDS ORDERED: Magnesium Sulfate 2 gm BAG 2 GM/50 ML BAG IVPB ONE (17:11)
[2020-12-02] MEDS: Insulin GLARGINE 100 un/ml 10 ml VIAL SUBCUT SCH (20:35)
[2020-12-02] MEDS: Albuterol/Ipratropium NEB.SOL (2.5/0.5 MG) 3 ML NEB.SOLN INH PRN (22:37)
[2020-12-03] MEDS: Heparin 5000 UNITS/ML 1 mL VIAL SUBCUT SCH ×3 (06:37→21:26)
[2020-12-03 08:05] LABS: Calcium 9.1 mg/dL (8.6-10.3); EGFR African American 67.9 (>60); EGFR Non-African American 56.1 (>60); Magnesium 1.7 mg/dL (1.9-2.7); Potassium 3.1 mmol/L (3.5-5.0)
[2020-12-03] MEDS ORDERED: Magnesium Sulfate 2 gm BAG 2 GM/50 ML BAG IVPB ONE (08:08)
[2020-12-03] MEDS ORDERED: Potassium Chlor 20 meq TAB.ER PO SCH (09:00)
[2020-12-03] MEDS: KCL 20 MEQ/100 ML IVPREMIX 20 MEQ/100 ML BAG IV SCH ×2 (09:33→12:31)
[2020-12-03] MEDS: Potassium Chlor 20 meq TAB.ER PO SCH ×2 (09:34→21:27)
[2020-12-03] MEDS: Aspirin EC 81 mg TAB.EC (enteric coated) PO SCH (09:35)
[2020-12-03] MEDS ORDERED: Magnesium Hydroxide LIQ 30 ML UDC PO PRN (15:45)
[2020-12-03] MEDS ORDERED: Senna TAB 8.6 mg TAB PO SCH (21:00)
[2020-12-03] MEDS: Insulin GLARGINE 100 un/ml 10 ml VIAL SUBCUT SCH (22:09)
[2020-12-03] MEDS: Albuterol/Ipratropium NEB.SOL (2.5/0.5 MG) 3 ML NEB.SOLN INH PRN (22:52)
[2020-12-04] MEDS: Heparin 5000 UNITS/ML 1 mL VIAL SUBCUT SCH ×2 (06:07→14:34)
[2020-12-04 06:57] LABS: Calcium 9.4 mg/dL (8.6-10.3); EGFR African American 67.2 (>60); EGFR Non-African American 55.6 (>60); Magnesium 1.8 mg/dL (1.9-2.7); Potassium 3.7 mmol/L (3.5-5.0)
[2020-12-04] MEDS: Potassium Chlor 20 meq TAB.ER PO SCH (09:44)
[2020-12-04] MEDS: Aspirin EC 81 mg TAB.EC (enteric coated) PO SCH (09:44)
[2020-12-04] MEDS ORDERED: Magnesium Sulfate 2 gm BAG 2 GM/50 ML BAG IVPB ONE (12:20)
[2020-12-04 15:02] VITALS: BP 139/64
[2020-12-05 17:09] LABS: Tacrolimus 3.5 ng/mL
== END 2020-12-04 18:00 | disposition home or self-care (01) | DRG 291 ==
LOC: ED 09:33 → MED 09:33 → ED 15:55 → MED 11-28 15:49
PROVIDERS: ADMIT Internal Medicine; ATTEND Hospitalist

== ENCOUNTER 2021-05-06 10:46 | Inpatient (IN) ==
[2021-05-06 12:02] LABS: ABS Eosinophils 0.1 10^3/ul (0-0.6); ABS Lymphocytes 0.5 10^3/ul (1.0-4.8); ABS Monocytes 0.7 10^3/ul (0-0.8); ABS Neutrophils 4.3 10^3/ul (1.5-7.7); Eosinophil % 0.9 %; Hematocrit 38 % (42-52); Hemoglobin 13.1 g/dL (14.0-18.0); Lymphocyte % 9.4 %; Mean Corpuscular HGB Conc 34 g/dL (31-36); Mean Corpuscular Hemoglobin 30 pg (27-31); Mean Corpuscular Volume 88 fL (80-94); Mean Platelet Volume 7.8 fL (7.4-10.4); Platelet Count 159 10^3/uL (150-450); Red Blood Count 4.36 10^6 /uL (4.18-5.48); Red Cell Distribution Width 16 % (10-15); White Blood Count 5.6 10^3/uL (3.5-10.8)
[2021-05-06 12:19] LABS: Activated Partial Thrombo Time 32.3 seconds (26.0-38.0); INR 1.29 (0.86-1.15)
[2021-05-06 12:21] LABS: Albumin 4.2 g/dL (3.2-5.2); Albumin/Globulin Ratio 1.2 (1-3); Calcium 9.4 mg/dL (8.6-10.3); Globulin 3.6 g/dL (2-4); Potassium 4.3 mmol/L (3.5-5.0); Total Bilirubin 1.2 mg/dL (0.2-1.0); Total Protein 7.8 g/dL (6.4-8.9); Troponin I 0.02 ng/mL (<0.03)
[2021-05-06 12:23] LABS: Rapid COVID-19 Molecular Undetected (Undetected)
[2021-05-06] MEDS ORDERED: cefTRIAXone 1 gm/50 mL NS BAG 1 GM/50 ML BAG IV ONE (13:55)
[2021-05-06] MEDS ORDERED: Azithromycin 500 mg/250 ml NS 500 MG/250 ML BAG IVPB ONE (13:55)
[2021-05-06] MEDS ORDERED: Iodixanol (CONTRAST) 320 MG/ML 100 ML SDV IV ONE (14:14)
[2021-05-06 14:30] LABS: C Reactive Protein 49.94 mg/L (<8.01)
[2021-05-06] MEDS ORDERED: NS 0.9% 500 ml BAG 500 ML IV ONE (15:28)
[2021-05-06] MEDS: Enoxaparin 40 MG/0.4 ML SYR SUBCUT SCH (15:29)
[2021-05-06] MEDS ORDERED: Vancomycin 1,000 MG in NS 0.9% 250 ml 250 ML IVPB ONE (15:30)
[2021-05-06] MEDS ORDERED: Dextrose 50% Syringe 50 ml 25 GM/50 ML SYRINGE IV PUSH PRN (15:51)
[2021-05-06] MEDS ORDERED: Vancomycin per Pharmacy 1 EA NOTE FOLLOW UP SCH (16:00)
[2021-05-06] MEDS ORDERED: NS 0.9% 250 ml 250 ML ONE (16:57)
[2021-05-06] MEDS ORDERED: Vancomycin 1,250 MG in NS 0.9% 250 ml 250 ML IVPB ONE (17:00)
[2021-05-06] MEDS ORDERED: Cefepime 1 GM IV - ED ONCE IV ONE (17:00)
[2021-05-06 18:05] LABS: C Reactive Protein 64.16 mg/L (<8.01); Calcium 8.8 mg/dL (8.6-10.3); Potassium 4.3 mmol/L (3.5-5.0)
[2021-05-06] MEDS: Insulin GLARGINE 100 un/ml 10 ml VIAL SUBCUT SCH (22:09)
[2021-05-07] MEDS: DULoxetine DR 30 mg CAP PO SCH ×3 (00:09→21:31)
[2021-05-07] MEDS: Benzocaine/Menthol LOZ MT PRN (01:09)
[2021-05-07] MEDS ORDERED: Vancomycin 1,000 MG - ED ONCE IVPB ONE (04:00)
[2021-05-07 06:21] LABS: ABS Eosinophils 0.1 10^3/ul (0-0.6); ABS Lymphocytes 0.8 10^3/ul (1.0-4.8); ABS Monocytes 0.7 10^3/ul (0-0.8); ABS Neutrophils 3.8 10^3/ul (1.5-7.7); Hematocrit 36 % (42-52); Hemoglobin 12.1 g/dL (14.0-18.0); Mean Corpuscular HGB Conc 34 g/dL (31-36); Mean Corpuscular Hemoglobin 30 pg (27-31); Mean Corpuscular Volume 88 fL (80-94); Mean Platelet Volume 7.8 fL (7.4-10.4); Nucleated Red Blood Cells % 0.1; Platelet Count 141 10^3/uL (150-450); Red Blood Count 4.02 10^6 /uL (4.18-5.48); Red Cell Distribution Width 15 % (10-15); White Blood Count 5.4 10^3/uL (3.5-10.8)
[2021-05-07] MEDS: Cefepime 1 GM in Dextrose 1 GM/50 ML BAG IV SCH ×2 (07:41→21:32)
[2021-05-07] MEDS: Aspirin EC 81 mg TAB.EC (enteric coated) PO SCH (08:39)
[2021-05-07] MEDS ORDERED: cefTRIAXone 1 gm/50 mL NS BAG 1 GM/50 ML BAG IVPB SCH (14:30)
[2021-05-07] MEDS ORDERED: Azithromycin 500 mg/250 ml NS 500 MG/250 ML BAG IVPB SCH (15:00)
[2021-05-07] MEDS ORDERED: Vancomycin Trough Check NOTE FOLLOW UP ONE (16:00)
[2021-05-07] MEDS: Enoxaparin 40 MG/0.4 ML SYR SUBCUT SCH (16:04)
[2021-05-07 17:05] LABS: Vancomycin Trough 11.8 mcg/mL
[2021-05-07] MEDS: Insulin GLARGINE 100 un/ml 10 ml VIAL SUBCUT SCH (21:31)
[2021-05-08] MEDS: Cefepime 1 GM in Dextrose 1 GM/50 ML BAG IV SCH ×2 (05:34→17:39)
[2021-05-08] MEDS: Vancomycin 1,250 MG in NS 0.9% 250 ml 250 ML IVPB SCH (06:41)
[2021-05-08] MEDS: Aspirin EC 81 mg TAB.EC (enteric coated) PO SCH (07:52)
[2021-05-08] MEDS: DULoxetine DR 30 mg CAP PO SCH ×2 (07:52→21:04)
[2021-05-08] MEDS ORDERED: Senna TAB 8.6 mg TAB PO PRN (08:36)
[2021-05-08] MEDS ORDERED: Polyethylene Glycol 3350 17 GM PACKET PO PRN (08:36)
[2021-05-08 08:45] LABS: ABS Lymphocytes 0.5 10^3/ul (1.0-4.8); ABS Monocytes 0.3 10^3/ul (0-0.8); ABS Neutrophils 2.9 10^3/ul (1.5-7.7); Eosinophil % 0.1 %; Hematocrit 34 % (42-52); Lymphocyte % 14.3 %; Mean Corpuscular HGB Conc 35 g/dL (31-36); Mean Corpuscular Hemoglobin 31 pg (27-31); Mean Corpuscular Volume 88 fL (80-94); Mean Platelet Volume 8.2 fL (7.4-10.4); Nucleated Red Blood Cells % 0.1; Platelet Count 142 10^3/uL (150-450); Red Blood Count 3.91 10^6 /uL (4.18-5.48); Red Cell Distribution Width 15 % (10-15); White Blood Count 3.7 10^3/uL (3.5-10.8)
[2021-05-08 09:01] LABS: Calcium 8.8 mg/dL (8.6-10.3)
[2021-05-08 09:02] LABS: Potassium 5.1 mmol/L (3.5-5.0)
[2021-05-08] MEDS: Magnesium Hydroxide LIQ 30 ML UDC PO SCH ×2 (09:20→21:15)
[2021-05-08] MEDS: Enoxaparin 40 MG/0.4 ML SYR SUBCUT SCH (15:42)
[2021-05-08] MEDS: Insulin GLARGINE 100 un/ml 10 ml VIAL SUBCUT SCH (21:16)
[2021-05-08] MEDS ORDERED: Insulin GLARGINE 100 un/ml 10 ml VIAL SUBCUT ONE (21:37)
[2021-05-09] MEDS: Cefepime 1 GM in Dextrose 1 GM/50 ML BAG IV SCH (05:51)
[2021-05-09] MEDS: Vancomycin 1,250 MG in NS 0.9% 250 ml 250 ML IVPB SCH (06:46)
[2021-05-09 06:47] LABS: ABS Monocytes 0.7 10^3/ul (0-0.8); ABS Neutrophils 4.8 10^3/ul (1.5-7.7); Eosinophil % 0.1 %; Hematocrit 34 % (42-52); Mean Corpuscular HGB Conc 35 g/dL (31-36); Mean Corpuscular Hemoglobin 31 pg (27-31); Mean Corpuscular Volume 87 fL (80-94); Platelet Count 195 10^3/uL (150-450); Red Blood Count 3.92 10^6 /uL (4.18-5.48); Red Cell Distribution Width 15 % (10-15); White Blood Count 6.5 10^3/uL (3.5-10.8)
[2021-05-09 06:51] LABS: Albumin/Globulin Ratio 1.2 (1-3); Calcium 9.1 mg/dL (8.6-10.3); Globulin 3.3 g/dL (2-4); Total Bilirubin 0.6 mg/dL (0.2-1.0); Total Protein 7.3 g/dL (6.4-8.9)
[2021-05-09 06:58] LABS: Potassium 5.1 mmol/L (3.5-5.0)
[2021-05-09] MEDS: Magnesium Hydroxide LIQ 30 ML UDC PO SCH ×2 (08:13→22:06)
[2021-05-09] MEDS: DULoxetine DR 30 mg CAP PO SCH ×2 (08:14→22:04)
[2021-05-09] MEDS: Aspirin EC 81 mg TAB.EC (enteric coated) PO SCH (08:14)
[2021-05-09 15:28] LABS: Influenza A Molecular Negative (Negative); Influenza B Molecular Negative (Negative)
[2021-05-09] MEDS: Enoxaparin 40 MG/0.4 ML SYR SUBCUT SCH (16:21)
[2021-05-09] MEDS ORDERED: NS 0.9% 1000 ml BAG 1,000 ML IV SCH (17:45)
[2021-05-09] MEDS: cefTRIAXone 1 gm/50 mL NS BAG 1 GM/50 ML BAG IVPB SCH (17:54)
[2021-05-09] MEDS: Albuterol/Ipratropium NEB.SOL (2.5/0.5 MG) 3 ML NEB.SOLN INH SCH (20:07)
[2021-05-09] MEDS: Insulin GLARGINE 100 un/ml 10 ml VIAL SUBCUT SCH (22:08)
[2021-05-10 01:00] LABS: Urine Appearance Clear; Urine Bilirubin Negative (Negative); Urine Blood Negative (Negative); Urine Color Yellow; Urine Glucose Negative (Negative); Urine Ketones Negative (Negative); Urine Nitrite Negative (Negative); Urine Protein 1+(30 mg/dL) (Negative); Urine Specific Gravity 1.023 (1.002-1.030); Urine Urobilinogen Negative (Negative)
[2021-05-10 01:09] LABS: Urine Bacteria Absent (Absent); Urine Red Blood Cell Trace(0-2/hpf) (Absent); Urine White Blood Cell Trace(0-5/hpf) (Absent)
[2021-05-10 01:23] LABS: Urine Benzodiazepine Screen None Detected (None Detect); Urine Cannabinoids Screen None Detected (None Detect); Urine Opiates Screen Presumptive Positive (None Detect)
[2021-05-10] MEDS: Albuterol/Ipratropium NEB.SOL (2.5/0.5 MG) 3 ML NEB.SOLN INH SCH ×5 (03:44→21:39)
[2021-05-10] MEDS ORDERED: Vancomycin Trough Check NOTE FOLLOW UP ONE ×2 (06:00)
[2021-05-10 06:46] LABS: ABS Monocytes 0.7 10^3/ul (0-0.8); ABS Neutrophils 5.1 10^3/ul (1.5-7.7); Eosinophil % 0.1 %; Hematocrit 36 % (42-52); Hemoglobin 12.4 g/dL (14.0-18.0); Lymphocyte % 14.4 %; Mean Corpuscular HGB Conc 35 g/dL (31-36); Mean Corpuscular Hemoglobin 30 pg (27-31); Mean Corpuscular Volume 87 fL (80-94); Mean Platelet Volume 7.9 fL (7.4-10.4); Platelet Count 229 10^3/uL (150-450); Red Cell Distribution Width 15 % (10-15); White Blood Count 6.7 10^3/uL (3.5-10.8)
[2021-05-10 06:56] LABS: Albumin 3.8 g/dL (3.2-5.2); Albumin/Globulin Ratio 1.2 (1-3); Calcium 8.8 mg/dL (8.6-10.3); Globulin 3.2 g/dL (2-4); Magnesium 2.7 mg/dL (1.9-2.7); Potassium 4.5 mmol/L (3.5-5.0); Total Bilirubin 0.5 mg/dL (0.2-1.0)
[2021-05-10 07:05] LABS: Vancomycin Trough 12.1 mcg/mL
[2021-05-10] MEDS: Vancomycin 1,250 MG in NS 0.9% 250 ml 250 ML IVPB SCH (07:21)
[2021-05-10] MEDS: DULoxetine DR 30 mg CAP PO SCH ×2 (08:44→20:25)
[2021-05-10] MEDS: Aspirin EC 81 mg TAB.EC (enteric coated) PO SCH (08:44)
[2021-05-10] MEDS: Magnesium Hydroxide LIQ 30 ML UDC PO SCH (08:46)
[2021-05-10] MEDS: Enoxaparin 40 MG/0.4 ML SYR SUBCUT SCH (16:19)
[2021-05-10] MEDS: cefTRIAXone 1 gm/50 mL NS BAG 1 GM/50 ML BAG IVPB SCH (18:20)
[2021-05-10] MEDS: Insulin GLARGINE 100 un/ml 10 ml VIAL SUBCUT SCH (20:38)
[2021-05-11] MEDS: Magnesium Hydroxide LIQ 30 ML UDC PO SCH ×3 (01:33→22:00)
[2021-05-11] MEDS: Albuterol/Ipratropium NEB.SOL (2.5/0.5 MG) 3 ML NEB.SOLN INH SCH ×4 (03:06→19:39)
[2021-05-11] MEDS: Vancomycin 1,250 MG in NS 0.9% 250 ml 250 ML IVPB SCH (05:01)
[2021-05-11 10:10] LABS: Calcium 8.9 mg/dL (8.6-10.3); Potassium 4.1 mmol/L (3.5-5.0)
[2021-05-11] MEDS: Aspirin EC 81 mg TAB.EC (enteric coated) PO SCH (10:11)
[2021-05-11] MEDS: DULoxetine DR 30 mg CAP PO SCH ×2 (10:13→22:07)
[2021-05-11] MEDS: Enoxaparin 40 MG/0.4 ML SYR SUBCUT SCH (16:09)
[2021-05-11] MEDS: cefTRIAXone 1 gm/50 mL NS BAG 1 GM/50 ML BAG IVPB SCH (17:36)
[2021-05-11] MEDS: Insulin GLARGINE 100 un/ml 10 ml VIAL SUBCUT SCH (22:10)
[2021-05-12] MEDS: Albuterol/Ipratropium NEB.SOL (2.5/0.5 MG) 3 ML NEB.SOLN INH SCH ×4 (02:13→20:14)
[2021-05-12] MEDS: Vancomycin 1,250 MG in NS 0.9% 250 ml 250 ML IVPB SCH (06:08)
[2021-05-12] MEDS: Aspirin EC 81 mg TAB.EC (enteric coated) PO SCH (09:23)
[2021-05-12] MEDS: DULoxetine DR 30 mg CAP PO SCH ×2 (09:24→21:24)
[2021-05-12] MEDS: Magnesium Hydroxide LIQ 30 ML UDC PO SCH ×2 (09:25→21:23)
[2021-05-12] MEDS: Enoxaparin 40 MG/0.4 ML SYR SUBCUT SCH (16:16)
[2021-05-12] MEDS: cefTRIAXone 1 gm/50 mL NS BAG 1 GM/50 ML BAG IVPB SCH (17:23)
[2021-05-12] MEDS ORDERED: Insulin GLARGINE 100 un/ml 10 ml VIAL SUBCUT SCH (21:00)
[2021-05-13] MEDS: Benzocaine/Menthol LOZ MT PRN (00:28)
[2021-05-13] MEDS: Albuterol/Ipratropium NEB.SOL (2.5/0.5 MG) 3 ML NEB.SOLN INH SCH ×3 (02:20→13:51)
[2021-05-13] MEDS: Vancomycin 1,250 MG in NS 0.9% 250 ml 250 ML IVPB SCH (06:01)
[2021-05-13] MEDS: DULoxetine DR 30 mg CAP PO SCH (09:26)
[2021-05-13] MEDS: Aspirin EC 81 mg TAB.EC (enteric coated) PO SCH (09:27)
[2021-05-13] MEDS: Magnesium Hydroxide LIQ 30 ML UDC PO SCH (09:27)
[2021-05-13 15:36] VITALS: BP 135/63
[2021-05-13] MEDS ORDERED: Insulin GLARGINE 100 un/ml 10 ml VIAL SUBCUT SCH (21:00)
[2021-05-15] MEDS ORDERED: Vancomycin Trough Check NOTE FOLLOW UP ONE (06:00)
== END 2021-05-13 16:10 | disposition home or self-care (01) | DRG 193 ==
LOC: ED 10:46 → MED 22:33 → SUATTDRO 22:33 → MED 05-09 15:50
PROVIDERS: ADMIT Hospitalist; ATTEND Internal Medicine